=== PATIENT | female | born 1995 | race Caucasian/White ===

== ENCOUNTER 2020-12-21 12:31 | Emergency (ER) | payer OTHER ==
[~2020-12-21] VITALS: Ht 160 cm; Wt 52.2 kg
[2020-12-21] MEDS ORDERED: CENTANY30 GM TOP ×2 (13:19→13:41)
[2020-12-21] MEDS ORDERED: IBUPROFEN 800800 M1 PO (13:40)
[2020-12-21 13:41] VITALS: BP 141/70
== END 2020-12-21 13:41 | disposition home or self-care (01) ==
LOC: M.ERS 12:31
DX: T23.151A Burn of first degree of right palm, initial encounter (principal); Z88.2 Allergy status to sulfonamides; X15.8XXA Contact with other hot household appliances, initial encounter; Y93.89 Activity, other specified; Y92.89 Other specified places as the place of occurrence of the external cause; Y99.8 Other external cause status